=== PATIENT | male | born 1950 | race Caucasian/White ===

== ENCOUNTER 2020-03-14 20:28 | Emergency (ER) | payer MEDICARE, OTHER ==
[2020-03-14] MEDS ORDERED: Lactated Ringers 1,000 ML IV ONE (20:39)
[2020-03-14] MEDS ORDERED: Sodium Chloride 0.9% 10 ML Syringe FLUSH PRN (20:39)
[2020-03-14] MEDS ORDERED: HYDROmorphone 1 MG/ML Syringe IVPUSH ONE (20:40)
[2020-03-14] MEDS ORDERED: diphenhydrAMINE 50 MG/ML SDV IVPUSH ONE (20:40)
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
[2020-03-14] MEDS ORDERED: Diphtheria,Pertussis(Acell),Tetanus Vaccine 0.5 ML Syringe IM ONE (20:54)
[2020-03-14] MEDS ORDERED: Bacitracin Oint 1 GM U/D Packet TOP ONE (21:00)
[2020-03-14 21:27] LABS: CHLORIDE,CL 105 mmol/L (98-107); SODIUM,NA 141 mmol/L (136-145)
[2020-03-14 21:30] LABS: ANION GAP 15.1 mmol/L (10-20)
[2020-03-14 21:58] LABS: PTT,PARTIAL THROMBOPLSTIN TIME 32.7 SEC (25.6-32.8)
== END 2020-03-14 21:45 | disposition short-term general hospital (02) ==
LOC: VM.ED 20:28
DX: T24.312A Burn of third degree of left thigh, initial encounter (principal); T24.302A Burn of third degree of unspecified site of left lower limb, except ankle and foot, initial encounter; T23.211A Burn of second degree of right thumb (nail), initial encounter; J44.9 Chronic obstructive pulmonary disease, unspecified; I10 Essential (primary) hypertension; Z23 Encounter for immunization; Z88.8 Allergy status to other drugs, medicaments and biological substances; Z91.048 Other nonmedicinal substance allergy status; Z79.01 Long term (current) use of anticoagulants; Z79.899 Other long term (current) drug therapy; X08.8XXA Exposure to other specified smoke, fire and flames, initial encounter
CPT/HCPCS: 16030; 36415; 80053; 80307; 83605; 85025; 85610; 85730; 90471; 90715; 96374; 96375; 99283-GF; 99285-25; J1170; J1200; J7120

== ENCOUNTER 2021-02-02 06:11 | Day surgery (SDC) | payer MEDICARE, OTHER ==
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
[~2021-02-02 06:11] MED LIST: Lactated Ringers 1,000 ML IV SCH; Sodium Chloride 0.9% 10 ML Syringe FLUSH PRN
[2021-02-02] MEDS ORDERED: Lactated Ringers 1,000 ML IV SCH (07:00)
[2021-02-02] MEDS ORDERED: Albuterol 0.083% 2.5 MG/3 ML Neb Soln NEB ONE (07:11)
[2021-02-02] MEDS ORDERED: Propofol 200 MG/20 ML SDV ONE ×3 (07:41→08:20)
[2021-02-02] MEDS ORDERED: fentaNYL 100 MCG/2 ML SDV ONE (07:42)
[2021-02-02 09:08] VITALS: BP 140/82; PULSE 78
--- NOTE | 2021-02-02 13:31 | OR ---
PREOPERATIVE DIAGNOSIS: History of colon polyps. POSTOPERATIVE DIAGNOSES: 1. Colon polyps. 2. Extensive sigmoid diverticulosis. PROCEDURE PERFORMED: Total flexible colonoscopy with biopsies. ANESTHESIA: MAC. COMPLICATIONS: None apparent. BLOOD LOSS: Minimal. FINDINGS: 1. Ascending polyp, 3 mm, cold snare. 2. Large flat ascending polyp, estimated to be about 1/3 of the circumference of the colon. Due to its size and location, I did not attempt endoscopic resection as I felt that would be unsuccessful. Biopsies were obtained and a tattoo was placed. 3. Transverse colon polyp, 1 cm, saline lift with hot snare and cold forceps. 4. Descending colon polyp, 2 mm, cold forceps. 5. Rectal polyp, 5 mm, hot snare. START TIME: 0748. CECUM TIME: 0755. STOP TIME: 0845. BOWEL PREP: [place] class 2. INDICATIONS: Mr. Triana is a 70-year-old male who has had numerous polyps removed in the past. His last colonoscopy was 5 years ago. He did have an episode of uncomplicated diverticulitis 6 weeks ago, which has been since resolved. He is here for repeat colonoscopy. DETAILS OF PROCEDURE: Informed consent was obtained. The patient was placed in the left lower decubitus position. MAC anesthesia was induced by Anesthesia colleagues. Colonoscope was introduced into the rectum and advanced to the cecum. The ileocecal valve was photographed. The appendiceal orifice was under stool and not well seen. 80% of the cecum was well seen. We then withdrew the scope. No pathology was identified except for what is mentioned in the above findings section. Notably, there was a large flat ascending polyp that I did not feel like would endoscopically resect due to its size and location, so biopsies were obtained and a tattoo was placed. The patient tolerated the procedure well, was awoken from anesthesia by Anesthesia colleagues without incident. PATHOLOGY: A) Colon, ascending, polyp Tubular adenoma. B) Colon, ascending polyp biopsy Tubular adenoma. C) Colon, transverse, polyp Tubular adenoma. D) Colon, descending colon polyp Tubular adenoma. E) Rectum, polyp Tubular adenoma. Recommendations: -I discussed with the patient that he had a large ascending polyp I was unable to endoscopically removed. I offered 2 options for him. The first was referral to a GI specialist in [place] with greater endoscopic expertise who may be able to endoscopically remove that polyp. The second option was an operation to remove the portion of his colon containing the polyp. This would be a right hemicolectomy. The patient actually preferred to go straight to surgery even though it is more invasive and carries greater risk. He had a brother who had a similar situation where it sounds like a large polyp was removed surgically and upstaged to invasive cancer. For this reason he prefers surgery. I will see him in clinic to discuss this further, and in the meantime I will have his chart reviewed by our anesthesia team here in [place]. RKM: 02/02/2021 08:58:50 MODL: 02/02/2021 10:34:30 /[id number] MTDD
--- NOTE | 2021-02-08 08:14 | LETTER ---
02/07/2021 Mr. Minor Blackman [address] [place] [id number] RE: MINOR BLACKMAN : 1950 Dear Mr. Blackman: I am writing to inform you of the pathology results of your recent colonoscopy. You had 5 tubular adenomas. A tubular adenoma is a polyp which does not contain cancer, but it can become cancer, which is why we removed them. As we discussed over the phone, one of those polyps on the right side of your colon was too large for removal with the endoscope. As we discussed, I will have you see me in clinic to discuss surgical removal of the portion of your colon containing this polyp. In the meantime, I am happy to answer any questions or concerns that you may have prior to your clinic visit. Warmest regards. Sincerely,
== END 2021-02-02 10:30 | disposition home or self-care (01) ==
LOC: VM.SDS 06:11
PROVIDERS: ATTEND Student in an Organized Health Care Education/Training Program
DX: Z12.11 Encounter for screening for malignant neoplasm of colon (principal); D12.2 Benign neoplasm of ascending colon; D12.3 Benign neoplasm of transverse colon; D12.4 Benign neoplasm of descending colon; D12.8 Benign neoplasm of rectum; I10 Essential (primary) hypertension; E78.2 Mixed hyperlipidemia; F17.210 Nicotine dependence, cigarettes, uncomplicated; I33.0 Acute and subacute infective endocarditis; Z79.899 Other long term (current) drug therapy; Z88.8 Allergy status to other drugs, medicaments and biological substances; Z87.19 Personal history of other diseases of the digestive system; Z98.890 Other specified postprocedural states
CPT/HCPCS: 00811; 88305; J2704; J3010; J7120; J7613-GY

== ENCOUNTER 2022-01-11 10:22 | Emergency (ER) | payer MEDICARE, OTHER ==
[2022-01-11 10:30] VITALS: PULSE 85
[2022-01-11 10:50] LABS: ANION GAP 12.9 mmol/L (5-15); CHLORIDE,CL 110 mmol/L (98-107); SODIUM,NA 144 mmol/L (136-145)
[2022-01-11] MEDS ORDERED: Sodium Chloride 0.9% 1,000 ML IV SCH (11:45)
[2022-01-11 13:03] VITALS: BP 123/67
== END 2022-01-11 12:55 | disposition short-term general hospital (02) ==
LOC: VM.ED 10:22
DX: K92.2 Gastrointestinal hemorrhage, unspecified (principal); E78.00 Pure hypercholesterolemia, unspecified; I10 Essential (primary) hypertension; J44.9 Chronic obstructive pulmonary disease, unspecified; Z72.0 Tobacco use; Z88.1 Allergy status to other antibiotic agents; Z88.8 Allergy status to other drugs, medicaments and biological substances; Z79.899 Other long term (current) drug therapy; Z79.82 Long term (current) use of aspirin; Z79.01 Long term (current) use of anticoagulants; Z91.048 Other nonmedicinal substance allergy status
CPT/HCPCS: 36415; 80053; 81001; 82274; 84484; 85025; 85610; 86140; 87086; 87088; 87186; 99284; 99285; J7030

== ENCOUNTER 2023-07-07 15:49 | Emergency (ER) | payer MEDICARE, OTHER ==
[2023-07-07 16:31] LABS: BASOPHILS ABSOLUTE AUTO 0.1 x10^3/uL (0.0-0.2); BASOPHILS PERCENT AUTO 0.6 % (0.2-1.2); EOSINOPHILS ABSOLUTE AUTO 0.5 x10^3/uL (0.0-0.5); EOSINOPHILS PERCENT AUTO 4.8 % (0.0-4.0); HEMATOCRIT 44.8 % (40.0-52.0); HEMOGLOBIN 15.3 g/dL (14.0-18.0); IMMATURE GRAN ABSOLUTE AUTO 0.01 x10^3/uL (0.00-0.07); LYMPHOCYTES ABSOLUTE AUTO 1.9 x10^3/uL (1.0-4.8); LYMPHOCYTES PERCENT AUTO 19.3 % (25.0-50.0); MEAN CORPUSCULAR HEMOGLOBIN 32.3 pg (26.0-32.0); MEAN CORPUSCULAR HGB CONC 34.2 g/dL (32.0-36.0); MEAN CORPUSCULAR VOLUME 94.5 fL (78.0-93.0); MONOCYTES ABSOLUTE AUTO 0.8 x10^3/uL (0.0-0.8); MONOCYTES PERCENT AUTO 8.6 % (2.0-11.0); NEUTROPHILS ABSOLUTE AUTO 6.4 x10^3/uL (1.8-7.7); NEUTROPHILS PERCENT AUTO 66.6 % (50.0-80.0); PLATELET COUNT,PLT 229 x10^3/uL (130-400); RED BLOOD CELL COUNT 4.74 x10^6/uL (4.5-6.0); WHITE BLOOD CELL COUNT,WBC 9.6 x10^3/uL (4.0-10.0)
[2023-07-07 16:43] LABS: INR 1.7 (0.9-1.1); PROTHROMBIN TIME 18.3 SEC (9.5-12.2)
[2023-07-07 16:52] LABS: A/G RATIO 1.03; ALANINE AMINOTRANSFERASE,ALT 47 U/L (16-63); ALBUMIN 3.4 g/dL (3.4-5.0); ALKALINE PHOSPHATASE 79 U/L (46-116); BILIRUBIN TOTAL 0.2 mg/dL (0.2-1.0); BLOOD UREA NITROGEN,BUN 19 mg/dL (7-18); CALCIUM 8.6 mg/dL (8.5-10.1); CARBON DIOXIDE,CO2 29 mmol/L (21-32); CHLORIDE,CL 109 mmol/L (98-107); CREATINE KINASE,CK 135 U/L (39-308); CREATININE 1.2 mg/dL (0.70-1.30); GLUCOSE RANDOM 146 mg/dL (70-99); POTASSIUM,K 4.3 mmol/L (3.5-5.1); PROTEIN TOTAL,TP 6.7 g/dL (6.4-8.2); SODIUM,NA 144 mmol/L (136-145)
[2023-07-07 16:54] LABS: ANION GAP 10.3 mmol/L (5-15); ESTIMATED GFR 65 mL/min (>=60)
[2023-07-07 17:01] LABS: ASPARTATE AMNIOTRANSFERASE,AST 26 U/L (15-37)
[2023-07-07] MEDS: Metoprolol Succinate 25 MG Tab.ER PO ONE (17:23)
[2023-07-07 17:26] VITALS: PULSE 108
[2023-07-07 19:34] VITALS: BP 115/57
== END 2023-07-07 17:32 | disposition home or self-care (01) ==
LOC: VM.ED 15:49
DX: I48.92 Unspecified atrial flutter (principal); E78.00 Pure hypercholesterolemia, unspecified; J44.9 Chronic obstructive pulmonary disease, unspecified; I10 Essential (primary) hypertension; F17.200 Nicotine dependence, unspecified, uncomplicated; Z88.8 Allergy status to other drugs, medicaments and biological substances; Z79.82 Long term (current) use of aspirin; Z79.01 Long term (current) use of anticoagulants; Z79.899 Other long term (current) drug therapy
CPT/HCPCS: 71046; 80053; 82550; 84484; 85025; 85610; 93005; 99285; A9270-GY

== ENCOUNTER 2023-07-18 13:25 | Emergency (ER) | payer MEDICARE, OTHER ==
[2023-07-18 13:44] LABS: BASOPHILS ABSOLUTE AUTO 0.1 x10^3/uL (0.0-0.2); BASOPHILS PERCENT AUTO 0.6 % (0.2-1.2); EOSINOPHILS ABSOLUTE AUTO 0.5 x10^3/uL (0.0-0.5); EOSINOPHILS PERCENT AUTO 4.9 % (0.0-4.0); HEMATOCRIT 42.2 % (40.0-52.0); HEMOGLOBIN 14.3 g/dL (14.0-18.0); IMMATURE GRAN ABSOLUTE AUTO 0.01 x10^3/uL (0.00-0.07); LYMPHOCYTES ABSOLUTE AUTO 1.3 x10^3/uL (1.0-4.8); LYMPHOCYTES PERCENT AUTO 12.9 % (25.0-50.0); MEAN CORPUSCULAR HEMOGLOBIN 32.4 pg (26.0-32.0); MEAN CORPUSCULAR HGB CONC 33.9 g/dL (32.0-36.0); MEAN CORPUSCULAR VOLUME 95.7 fL (78.0-93.0); MONOCYTES PERCENT AUTO 9.6 % (2.0-11.0); NEUTROPHILS ABSOLUTE AUTO 7.3 x10^3/uL (1.8-7.7); NEUTROPHILS PERCENT AUTO 71.9 % (50.0-80.0); PLATELET COUNT,PLT 203 x10^3/uL (130-400); RED BLOOD CELL COUNT 4.41 x10^6/uL (4.5-6.0); WHITE BLOOD CELL COUNT,WBC 10.2 x10^3/uL (4.0-10.0)
[2023-07-18 13:55] LABS: INR 1.6 (0.9-1.1); PROTHROMBIN TIME 17.4 SEC (9.5-12.2)
[2023-07-18 14:07] LABS: A/G RATIO 0.79; ALANINE AMINOTRANSFERASE,ALT 57 U/L (16-63); ALBUMIN 3.3 g/dL (3.4-5.0); ALKALINE PHOSPHATASE 78 U/L (46-116); BILIRUBIN TOTAL 0.3 mg/dL (0.2-1.0); BLOOD UREA NITROGEN,BUN 20 mg/dL (7-18); C-REACTIVE PROTEIN 2.27 mg/dL (<=0.30); CALCIUM 8.5 mg/dL (8.5-10.1); CARBON DIOXIDE,CO2 31 mmol/L (21-32); CHLORIDE,CL 108 mmol/L (98-107); CREATINE KINASE,CK 84 U/L (39-308); GLUCOSE RANDOM 144 mg/dL (70-99); LACTATE DEHYDROGENASE,LDH 212 U/L (85-227); POTASSIUM,K 4.2 mmol/L (3.5-5.1); PROTEIN TOTAL,TP 7.5 g/dL (6.4-8.2); SODIUM,NA 146 mmol/L (136-145)
[2023-07-18 14:08] LABS: ANION GAP 11.2 mmol/L (5-15); ESTIMATED GFR 80 mL/min (>=60)
[2023-07-18] MEDS ORDERED: Iopamidol 612 MG/ML 100 ML Bottle IVPUSH ONE (14:15)
[2023-07-18 14:26] LABS: ASPARTATE AMNIOTRANSFERASE,AST 26 U/L (15-37)
[2023-07-18] MEDS ORDERED: Furosemide 40 MG/4 ML VIAL IV ONE (14:44)
[2023-07-18 17:27] VITALS: PULSE 95
[2023-07-18 17:41] VITALS: BP 146/101
== END 2023-07-18 17:02 | disposition home or self-care (01) ==
LOC: VM.ED 13:25
DX: I11.0 Hypertensive heart disease with heart failure (principal); I50.9 Heart failure, unspecified; J44.9 Chronic obstructive pulmonary disease, unspecified; F17.210 Nicotine dependence, cigarettes, uncomplicated; Z88.8 Allergy status to other drugs, medicaments and biological substances; Z91.09 Other allergy status, other than to drugs and biological substances; Z79.82 Long term (current) use of aspirin
CPT/HCPCS: 71260; 74177; 80053; 82550; 83615; 83690; 83880; 84484; 85025; 85610; 86140; 93005; 96374; 99285; J1940; Q9967